=== PATIENT | female | born 1960 | race Caucasian/White ===

== ENCOUNTER → 2017-09-01 | Outpatient (CLI) | payer OTHER | LOC: M SLEEP HO 13:09 | DX: R94.8 Abnormal results of function studies of other organs and systems (principal) ==

== ENCOUNTER 2017-09-26 05:57 | Inpatient (IN) | payer OTHER ==
[2017-09-26] MEDS ORDERED: LR 1,000 ML IV (06:30)
[2017-09-26] MEDS: LR 1,000 ML IV ×7 (07:04→17:13)
[2017-09-26] MEDS ORDERED: LIDOCAINE 2% INJ 100 MG/5 ML SDV (FOR ANES.) As Ordered (07:09)
[2017-09-26] MEDS ORDERED: ROCURONIUM BROMIDE 50 MG/5 ML VIAL As Ordered (07:09)
[2017-09-26] MEDS ORDERED: PROPOFOL 200 MG/20 ML VIAL As Ordered (07:09)
[2017-09-26] MEDS ORDERED: fentaNYL 250 MCG/5 ML INJECTION (J3010) As Ordered (07:10)
[2017-09-26] MEDS ORDERED: MIDAZOLAM INJ 2 MG/2 ML VIAL (J2250) As Ordered (07:10)
[2017-09-26] MEDS ORDERED: ONDANSETRON 4MG/2ML VIAL (J2405) As Ordered (08:12)
[2017-09-26] MEDS ORDERED: NEOSTIGMINE 10 MG/10 ML VIAL (J2710) As Ordered (08:12)
[2017-09-26] MEDS ORDERED: METOCLOPRAMIDE INJ 10MG/2ML VIAL (J2765) As Ordered (08:12)
[2017-09-26] MEDS ORDERED: dexameTHASONE 4 MG/ML 1ML VIAL (J1100) As Ordered (08:12)
[2017-09-26] MEDS ORDERED: GLYCOPYRROLATE INJ 0.2 MG/ML 2 ML VIAL As Ordered (08:12)
[2017-09-26] MEDS ORDERED: KETOROLAC 60 MG/2 ML VIAL (J1885) As Ordered (08:12)
[2017-09-26] MEDS ORDERED: HYDROmorphone HCL 2 MG/ML 1ML VIAL (J1170) As Ordered (08:40)
[2017-09-26] MEDS: METHYLENE BLUE 0.5% (5MG/ML) 10 ML AMP (PROVAYBLUE)(Q9968 PER 1MG) As Ordered (09:05)
[2017-09-26] MEDS ORDERED: METOCLOPRAMIDE INJ 10MG/2ML VIAL (J2765) IV (10:15)
[2017-09-26] MEDS ORDERED: ONDANSETRON 4MG/2ML VIAL (J2405) IV (10:15)
[2017-09-26] MEDS ORDERED: fentaNYL 100 MCG/2 ML INJECTION (J3010) IV (10:15)
[2017-09-26] MEDS ORDERED: PERCOCET 5MG/325MG TAB PO (10:30)
[2017-09-26] MEDS ORDERED: LABETALOL HCL 100 MG/20 ML VIAL As Ordered (10:39)
[2017-09-26] MEDS: LABETALOL HCL 100 MG/20 ML VIAL IV ×2 (10:47→11:04)
[2017-09-26] MEDS: PERCOCET 5MG/325MG TAB PO ×3 (10:49→16:07)
[2017-09-26] MEDS: MEPERIDINE INJ 25 MG/ML VIAL (J2175) IV (10:52)
[2017-09-26] MEDS: MORPHINE 4 MG/ML 1ML VIAL (J2270) IV ×2 (14:06→16:05)
[2017-09-26] MEDS: ONDANSETRON 4MG/2ML VIAL (J2405) IV (17:13)
[2017-09-26] MEDS: DOCUSATE SODIUM 100 MG CAP PO (20:13)
[2017-09-26] MEDS: KETOROLAC 30 MG/ML VIAL (J1885) IV (20:13)
[2017-09-27] MEDS: PERCOCET 5MG/325MG TAB PO ×3 (00:07→10:40)
[2017-09-27] MEDS: LR 1,000 ML IV ×2 (00:47→10:15)
[2017-09-27 07:27] LABS: HEMATOCRIT 43.2 % (36.0-47.0); HEMOGLOBIN 14.1 g/dl (12.0-16.0); MEAN CORPUSCULAR HEMOGLOBIN 27.8 pg (27.0-33.0); MEAN CORPUSCULAR HGB CONC 32.6 g/dl (32.0-36.5); MEAN CORPUSCULAR VOLUME 85.2 fl (80.0-96.0); PLATELET COUNT, AUTOMATED 257 10^3/uL (150-450); RED BLOOD COUNT 5.07 10^6/uL (4.00-5.40); RED CELL DISTRIBUTION WIDTH 14.6 % (11.5-14.5); WHITE BLOOD COUNT 7.5 10^3/uL (4.0-10.0)
[2017-09-27] MEDS: DOCUSATE SODIUM 100 MG CAP PO ×2 (08:18→21:36)
[2017-09-27] MEDS: KETOROLAC 30 MG/ML VIAL (J1885) IV (10:39)
[2017-09-27] MEDS: IBUPROFEN 800 MG TAB PO (21:36)
[2017-09-28] MEDS: IBUPROFEN 800 MG TAB PO (02:00)
[2017-09-28] MEDS: DOCUSATE SODIUM 100 MG CAP PO (08:21)
== END 2017-09-28 09:55 | disposition home or self-care (01) | DRG 519 ==
LOC: M OR 05:57 → M PED 11:52 → M ED INP 12:40 → M PED 12:47
PROC: 0UT90ZZ Resection of Uterus, Open Approach (ICD-10-PCS; principal; 2017-09-26 07:30)
PROC: 0UTC0ZZ Resection of Cervix, Open Approach (ICD-10-PCS; 2017-09-26 07:30)
PROC: 0UT20ZZ Resection of Bilateral Ovaries, Open Approach (ICD-10-PCS; 2017-09-26 07:30)
PROC: 0UT70ZZ Resection of Bilateral Fallopian Tubes, Open Approach (ICD-10-PCS; 2017-09-26 07:30)
DX: D25.9 Leiomyoma of uterus, unspecified (principal); I10 Essential (primary) hypertension; H91.91 Unspecified hearing loss, right ear; E66.9 Obesity, unspecified; R91.8 Other nonspecific abnormal finding of lung field; Z91.048 Other nonmedicinal substance allergy status; Z79.899 Other long term (current) drug therapy; Z68.36 Body mass index [BMI] 36.0-36.9, adult; Z97.4 Presence of external hearing-aid

== ENCOUNTER → 2021-03-06 | Outpatient (REF) | payer OTHER ==
[~2021-03-06] MED LIST: ADVI200C5 PO; COLA100C5 PO; FERR325T3 PO; OXYC1TAB23 PO
== END ==
LOC: M LAB REF 12:37
PROVIDERS: ATTEND Internal Medicine
DX: D45 Polycythemia vera (principal)

== ENCOUNTER → 2021-03-27 | Outpatient (REF) | payer OTHER | LOC: M LAB REF 17:22 | PROVIDERS: ATTEND Internal Medicine | DX: D45 Polycythemia vera (principal) ==

== ENCOUNTER → 2024-06-02 | Outpatient (CLI) | payer OTHER, MEDICAID | LOC: M WHC 07:32 | PROVIDERS: ATTEND Internal Medicine | DX: N64.4 Mastodynia (principal); R92.323 Mammographic fibroglandular density, bilateral breasts | CPT/HCPCS: 77066; G0279 ==